=== PATIENT | male | born 1965 | race Caucasian/White ===

== ENCOUNTER 2016-12-05 14:23 | Emergency (ER) | payer SELFPAY ==
[~2016-12-05] VITALS: Ht 165.1 cm; Wt 80.0 kg
[2016-12-05] MEDS ORDERED: FLUORESCEIN SODIUM 1 MG STRIP OU ONE ×2 (15:15→16:30)
[2016-12-05] MEDS ORDERED: PROPARACAINE HCL 0.5% 15 ML OPHTHALMIC SOLUTION OU ONE ×2 (15:15→16:30)
[2016-12-05] MEDS ORDERED: ACETAMINOPHEN 325 MG TABLET PO ONE (16:15)
[2016-12-05 17:57] VITALS: BP 140/95
== END 2016-12-05 17:58 | disposition home or self-care (01) ==
LOC: EMS 14:25
DX: T65.891A Toxic effect of other specified substances, accidental (unintentional), initial encounter (principal); T26.91XA Corrosion of right eye and adnexa, part unspecified, initial encounter; T26.92XA Corrosion of left eye and adnexa, part unspecified, initial encounter; Y93.89 Activity, other specified; Y92.89 Other specified places as the place of occurrence of the external cause; Y99.8 Other external cause status
CPT/HCPCS: 99284